=== PATIENT | male | born 1970 | race African-American/Black ===

== ENCOUNTER 2025-04-15 17:19 | Emergency (ER) | payer MEDICARE, MEDICAID, SELFPAY ==
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
[2025-04-15 17:33] VITALS: BP 132/60; PULSE 75; O2SAT 98
[2025-04-15 17:42] VITALS: BP 146/102; PULSE 71; RESP 20; TEMP 37; O2SAT 95; BMI 25.6
[2025-04-15 18:16] VITALS: BP 160/90; PULSE 55; RESP 16; O2SAT 99
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
[2025-04-15 20:18] VITALS: BP 143/90; PULSE 68; RESP 16; TEMP 36.3; O2SAT 99
[2025-04-15 20:41] VITALS: BP 143/90; PULSE 68; RESP 16; TEMP 36.3; O2SAT 99
== END 2025-04-15 20:42 | disposition home or self-care (01) ==
PROVIDERS: Emergency Provider Emergency Medicine
DX: S13.4XXA Sprain of ligaments of cervical spine, initial encounter (principal); S00.83XA Contusion of other part of head, initial encounter; M54.2 Cervicalgia; R51.9 Headache, unspecified; R91.1 Solitary pulmonary nodule; V43.52XA Car driver injured in collision with other type car in traffic accident, initial encounter; Y93.9 Activity, unspecified; Y92.410 Unspecified street and highway as the place of occurrence of the external cause; Y99.8 Other external cause status
CPT/HCPCS: 70450; 72125; 96372; 99284; J1885

== ENCOUNTER → 2025-04-15 19:32 | Outpatient (BNV) | payer MEDICARE, MEDICAID, SELFPAY | PROVIDERS: Emergency Provider Emergency Medicine; Visit Provider Radiology Diagnostic Radiology | DX: R91.1 Solitary pulmonary nodule (principal); Z04.3 Encounter for examination and observation following other accident | CPT/HCPCS: 70450; 72125 ==

== ENCOUNTER 2025-04-16 13:10 | Emergency (ER) | payer MEDICARE, MEDICAID, SELFPAY ==
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
[2025-04-16 13:16] VITALS: BP 142/80; PULSE 80; O2SAT 99
[2025-04-16 13:18] VITALS: BP 134/97; PULSE 81; RESP 20; TEMP 36.3; O2SAT 99; BMI 24.0
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
[2025-04-16 15:18] VITALS: BP 145/82; PULSE 63; RESP 18; O2SAT 98
[2025-04-16 15:43] VITALS: BP 145/82; PULSE 63; RESP 18; TEMP 36.3; O2SAT 98
== END 2025-04-16 15:44 | disposition home or self-care (01) ==
PROVIDERS: Emergency Provider Emergency Medicine
DX: M62.830 Muscle spasm of back (principal); M54.50 Low back pain, unspecified; V89.2XXA Person injured in unspecified motor-vehicle accident, traffic, initial encounter; Y93.9 Activity, unspecified; Y92.9 Unspecified place or not applicable; M25.512 Pain in left shoulder; M25.572 Pain in left ankle and joints of left foot; M25.571 Pain in right ankle and joints of right foot; M79.604 Pain in right leg; Z59.00 Homelessness unspecified
CPT/HCPCS: 72100; 73030; 73610; 99283

== ENCOUNTER → 2025-04-16 13:25 | Outpatient (BNV) | payer MEDICARE, MEDICAID, SELFPAY | PROVIDERS: Visit Provider Radiology Diagnostic Radiology | DX: M51.370 Other intervertebral disc degeneration, lumbosacral region with discogenic back pain only (principal); M25.512 Pain in left shoulder; M25.571 Pain in right ankle and joints of right foot; M25.572 Pain in left ankle and joints of left foot; V89.2XXA Person injured in unspecified motor-vehicle accident, traffic, initial encounter | CPT/HCPCS: 72100; 73030; 73610 ==